=== PATIENT | female | born 1995 | race Hispanic/Latino ===

== ENCOUNTER 2017-02-22 20:53 | Emergency (ER) | payer MEDICARE | END 2017-02-22 22:12 | disposition home or self-care (01) | LOC: EDH 20:53 | DX: J01.90 Acute sinusitis, unspecified (principal); J45.909 Unspecified asthma, uncomplicated | CPT/HCPCS: 81025 ==

== ENCOUNTER 2019-08-11 18:11 | Emergency (ER) | payer MEDICARE ==
[2019-08-11 19:02] LABS: RAPID GROUP A STREP NEGATIVE (NEGATIVE)
== END 2019-08-11 19:34 | disposition home or self-care (01) ==
LOC: EDH 18:11
DX: B34.9 Viral infection, unspecified (principal); J45.909 Unspecified asthma, uncomplicated
CPT/HCPCS: 87804; 87880